=== PATIENT | female | born 1985 | race Asian ===

== ENCOUNTER 2017-10-21 08:28 | Day surgery (SDC) | payer OTHER ==
[2017-10-18 14:51] VITALS: BMI 24.0
[2017-10-21 09:14] VITALS: TEMP 98.2
[2017-10-21] MEDS ORDERED: PROPOFOL 20 ML ONE ×3 (10:09)
[2017-10-21 10:35] VITALS: PULSE 67
[2017-10-21 11:01] VITALS: BP 96/66
--- NOTE | 2017-10-22 12:53 | PATH ---
Surgical Pathology Report Patient Name: AAD GALICIA [facility]. Rec. #: [id number] /Age/Gender: 1985 (Age: 31) / F Account: [id number] Location: U-ENDOSCOPY Taken: 10/21/2017 Received: 10/21/2017 Reported: 10/22/2017 Physicians: Bertha Stein M.D. Specimen(s) Received A: BX 2ND PORTION OF DUODENUM AND BULB B: BX ANTRUM Clinical History Preoperative diagnosis: Nausea Postoperative diagnosis: Atrophic gastritis Final Diagnosis A. DUODENUM, SECOND PORTION AND BULB BIOPSY: DUODENAL MUCOSA WITH NO PATHOLOGIC CHANGES. NO HISTOLOGIC EVIDENCE OF GLUTEN SENSITIVE ENTEROPATHY (CELIAC SPRUE) IDENTIFIED. B. STOMACH, ANTRUM, BIOPSY: GASTRIC ANTRAL MUCOSA WITH NO PATHOLOGIC CHANGES. IMMUNOSTAIN FOR H. PYLORI IS NEGATIVE. Electronically Signed Santy Mendoza M.D. Gross Description A. Received in formalin, labeled "biopsy second portion duodenum/bulb" are 5 peguero, irregular portions of soft tissue ranging from 0.3-0.5 cm. in greatest dimension. The specimens are submitted in toto in one cassette. B. Received in formalin, labeled "biopsy antrum" are 4 peguero, irregular portions of soft tissue ranging from 0.2-0.6 cm. in greatest dimension. The specimens are submitted in toto in one cassette. /10/21/201710/21/2017
== END 2017-10-21 11:02 | disposition home or self-care (01) ==
LOC: JASU-ENDO 08:28
PROVIDERS: ATTEND Internal Medicine Gastroenterology
PROC: 0DB68ZX Excision of Stomach, Via Natural or Artificial Opening Endoscopic, Diagnostic (ICD-10-PCS; 2017-10-21)
PROC: 0DB98ZX Excision of Duodenum, Via Natural or Artificial Opening Endoscopic, Diagnostic (ICD-10-PCS; principal; 2017-10-21 09:45)
DX: K29.40 Chronic atrophic gastritis without bleeding (principal); R11.0 Nausea
CPT/HCPCS: 84703; 88305-TC; 88342-TC

== ENCOUNTER 2020-03-14 05:26 | Day surgery (SDC) | payer OTHER ==
[2020-03-11 10:39] VITALS: BMI 25.4
[2020-03-14 09:36] VITALS: TEMP 97.3
[2020-03-14 10:19] VITALS: BP 117/75; PULSE 60
--- NOTE | 2020-03-15 15:38 | PATH ---
Surgical Pathology Report Patient Name: ADA GALICIA [facility]. Rec. #: [id number] /Age/Gender: 1985 (Age: 34) / F Account: [id number] Location: [facility]-ENDOSCOPY Taken: 03/14/2020 Received: 03/14/2020 Reported: 03/15/2020 Physicians: Bertha Stein M.D. Specimen(s) Received ILEO-CECAL VALVE Clinical History Rectal bleeding Postoperative diagnosis: Colon polyps, hemorrhoids Final Diagnosis ILEOCECAL VALVE POLYP, POLYPECTOMY: TUBULAR ADENOMA. Electronically Signed Marcos Calderon M.D. Gross Description Received in formalin, labeled "polyp ileocecal valve" is a peguero, irregular portion of soft tissue measuring 0.5 cm. in greatest dimension. The specimen is submitted in toto in one cassette. /03/14/2020 [facility]03/14/2020
== END 2020-03-14 10:27 | disposition home or self-care (01) ==
LOC: JASU-ENDO 05:26
PROVIDERS: ATTEND Internal Medicine Gastroenterology
PROC: 0DBC8ZX Excision of Ileocecal Valve, Via Natural or Artificial Opening Endoscopic, Diagnostic (ICD-10-PCS; principal; 2020-03-14 09:00)
DX: Z12.11 Encounter for screening for malignant neoplasm of colon (principal); K92.1 Melena; Z83.71 Family history of colonic polyps; D12.0 Benign neoplasm of cecum; K64.8 Other hemorrhoids
CPT/HCPCS: 81025; 88305-TC

== ENCOUNTER 2022-09-28 04:42 | Day surgery (SDC) | payer BC ==
[2022-09-27 15:19] VITALS: BMI 24.2
[2022-09-28 11:57] VITALS: TEMP 97.1
[2022-09-28 12:51] VITALS: BP 99/62; PULSE 74; RESP 16
== END 2022-09-28 13:00 | disposition home or self-care (01) ==
LOC: JASU-ENDO 04:42
PROVIDERS: ATTEND Internal Medicine Gastroenterology
PROC: 0DJD8ZZ Inspection of Lower Intestinal Tract, Via Natural or Artificial Opening Endoscopic (ICD-10-PCS; principal; 2022-09-28 12:00)
DX: Z12.11 Encounter for screening for malignant neoplasm of colon (principal); K64.8 Other hemorrhoids; Z86.010 Personal history of colon polyps; Z83.71 Family history of colonic polyps
CPT/HCPCS: 81025